=== PATIENT | female | born 1960 | race Caucasian/White ===

== ENCOUNTER 2020-09-18 07:15 | Observation (INO) | payer BC ==
[~2020-09-18] VITALS: Ht 165.1 cm; Wt 101.0 kg
[2020-09-18] MEDS ORDERED: ASPIRIN 81 MG CHEW TAB PO ONE (07:30)
[2020-09-18] MEDS ORDERED: KETOROLAC TROMETHAMINE 30 MG/ML VIAL IV STA (07:33)
[2020-09-18] MEDS ORDERED: PANTOPRAZOLE 40 MG 10ML VIAL IV STA (07:33)
[2020-09-18] MEDS ORDERED: SODIUM CHLORIDE 0.9% 1000ML 1,000 ML IV STA (07:33)
[2020-09-18] MEDS ORDERED: ONDANSETRON HCL INJ 2MG/ML 2ML 2 MG/ML VIAL IV STA (07:33)
[2020-09-18] MEDS ORDERED: MORPHINE SULFATE INJ 4 MG/ML INJ 1ML IV PRN ×2 (07:45→09:00)
[2020-09-18 07:47] LABS: BASOPHILS # (AUTO) 0.1 (0.0-0.1); BASOPHILS % 0.3 % (0.0-1.0); EOSINOPHILS % 0.1 % (0.0-6.0); HEMATOCRIT 44.8 % (34.2-44.1); HEMOGLOBIN 14.8 g/dL (12.0-16.0); LYMPHOCYTES # (AUTO) 1.3 (1.0-3.2); LYMPHOCYTES % 6.7 % (18.0-39.1); MEAN CORPUSCULAR HEMOGLOBIN 26.9 pg (28-32); MEAN CORPUSCULAR VOLUME 81.5 fL (81-99); MONOCYTES # (AUTO) 0.8 (0.2-0.8); MONOCYTES % 4.1 % (4.4-11.3); NEUTROPHILS # (AUTO) 16.7 (2.1-6.9); NEUTROPHILS % 88.2 % (38.7-80.0); PLATELET COUNT 285 x10e3/uL (140-360); RED CELL DISTRIBUTION WIDTH 13.1 % (11.7-14.4)
[2020-09-18 08:11] LABS: ALANINE AMINOTRANSFERASE 34 IU/L (0-55); ALBUMIN 3.9 g/dL (3.5-5.0); ALBUMIN/GLOBULIN RATIO 1.1 (0.8-2.0); ALKALINE PHOSPHATASE 91 IU/L (40-150); ANION GAP 16.7 mmol/L (8-16); BLOOD UREA NITROGEN 8 mg/dL (7-26); BUN/CREATININE RATIO 12 (6-25); CARBON DIOXIDE 22 mmol/L (22-29); CHLORIDE 102 mmol/L (98-107); CREATINE KINASE 38 IU/L (29-168); CREATININE, SERUM 0.65 mg/dL (0.57-1.11); EST GLOMERULAR FILTRATION RATE > 60 ML/MIN (60-); GLUCOSE 168 mg/dL (74-118); POTASSIUM 3.7 mmol/L (3.5-5.1); SODIUM 137 mmol/L (136-145)
[2020-09-18] MEDS ORDERED: CEFEPIME 1GM/NS 0.9% 50 ML 50 ML IV STA (08:20)
[2020-09-18] MEDS ORDERED: PANTOPRAZOLE 40 MG 10ML VIAL ONE (08:29)
[2020-09-18] MEDS ORDERED: KETOROLAC TROMETHAMINE 30 MG/ML VIAL ONE ×2 (08:29→13:00)
[2020-09-18] MEDS ORDERED: ONDANSETRON HCL INJ 2MG/ML 2ML 2 MG/ML VIAL ONE ×2 (08:29→13:00)
[2020-09-18] MEDS ORDERED: MORPHINE SULFATE INJ 4 MG/ML INJ 1ML ONE (08:29)
[2020-09-18] MEDS ORDERED: SODIUM CHLORIDE 0.9% 1000ML 1,000 ML ONE (08:29)
[2020-09-18] MEDS ORDERED: CEFEPIME HCL 1 GM VIAL ONE (08:30)
[2020-09-18 08:33] LABS: CLARITY,URINE CLOUDY (CLEAR); COLOR,URINE YELLOW (YELLOW); KETONES,URINE 1+ (NEGATIVE); LEUKOCYTE ESTERASE ,URINE NEGATIVE (NEGATIVE); NITRITE,URINE NEGATIVE (NEGATIVE); PROTEIN,URINE DIPSTICK 2+ (NEGATIVE); URINE UROBILINOGEN 0.2 mg/dL (0.2 - 1)
[2020-09-18] MEDS ORDERED: IOPAMIDOL 370 MG/ML 200 ML INFUS..BTL INJ ONE (08:36)
[2020-09-18] MEDS ORDERED: SODIUM CHLORIDE 0.9% 50ML 50 ML ONE (08:36)
[2020-09-18] MEDS ORDERED: CEFEPIME HCL 1GM 1 GM in SODIUM CHLORIDE 0.9% 50ML 50 ML IV SCH (09:00)
[2020-09-18] MEDS ORDERED: ONDANSETRON HCL INJ 2MG/ML 2ML 2 MG/ML VIAL IV PRN (09:00)
[2020-09-18] MEDS: SODIUM CHLORIDE 0.9% 1000ML 1,000 ML IV SCH ×3 (09:00→17:02)
[2020-09-18 09:19] LABS: BACTERIA,URINE MODERATE /HPF; EPITHELIAL CELLS,URINE FEW /LPF
[2020-09-18] MEDS ORDERED: METRONIDAZOLE 500MG/NS 100ML 100 ML IV ONE (10:00)
[2020-09-18] MEDS ORDERED: BUPIVACAINE 0.5%/EPI 30 ML SDV INJ ONE (12:02)
[2020-09-18] MEDS ORDERED: MIDAZOLAM HCL 2 MG/2 ML VIAL ONE (12:07)
[2020-09-18] MEDS ORDERED: FENTANYL CITRATE/PF 100MCG/2 ML INJ ONE (12:07)
[2020-09-18] MEDS ORDERED: GLYCOPYRROLATE INJ 0.2 MG/ML VIAL ONE (13:00)
[2020-09-18] MEDS ORDERED: ROCURONIUM BROMIDE 10 MG/ML 5ML VIAL IV ONE (13:00)
[2020-09-18] MEDS ORDERED: PROPOFOL IV EMULSION 10 MG/ML 20 ML VIAL ONE (13:00)
[2020-09-18] MEDS ORDERED: SEVOFLURANE INHAL SOLN 250 ML PEN BTL ONE (13:00)
[2020-09-18] MEDS ORDERED: DEXAMETHASONE SOD PHOS INJ 4 MG/ML VIAL ONE (13:00)
[2020-09-18] MEDS ORDERED: CEFAZOLIN SOD 1 GM VIAL ONE (13:00)
[2020-09-18] MEDS ORDERED: LIDOCAINE HCL 2% LOCAL INJ 5 ML SDV VIAL INJ ONE (13:00)
[2020-09-18] MEDS ORDERED: NEOSTIGMINE 1 MG/ML 10ML VIAL ONE (13:00)
[2020-09-18] MEDS ORDERED: ACETAMINOPHEN 1000 MG/100 ML 100 ML IV ONE (13:05)
[2020-09-18] MEDS ORDERED: ALBUTEROL/IPRATROPIUM 3 ML NEB ONE (13:45)
[2020-09-18] MEDS ORDERED: LORAZEPAM INJ 2 MG/ML VIAL ONE (13:58)
[2020-09-18 14:54] VITALS: BP 139/54
[2020-09-18] MEDS ORDERED: METHYLPREDNISOLONE SOD SUCC 125 MG/2ML VIAL IV ONE (15:00)
[2020-09-18] MEDS ORDERED: BREO ELLIPTA 11 EACH INH (16:41)
[2020-09-18] MEDS ORDERED: ASPIRIN 81 MG CHEW TAB ONE (16:42)
[2020-09-18] MEDS ORDERED: PROAIR HFA INH8.5 GM INH (16:43)
[2020-09-18] MEDS ORDERED: MONTELUKAST SOD10 MG PO (16:44)
[2020-09-18 17:00] VITALS: BP 139/54
[2020-09-18] MEDS ORDERED: ALBUTEROL SULFATE HFA 8GM INHALATION AEROSOL INH PRN (17:00)
[2020-09-18 20:00] VITALS: BP 139/54
[2020-09-18 20:37] VITALS: BP 131/59
[2020-09-19] VITALS (8 sets, daily range): BP systolic 131–152; BP diastolic 75–94
[2020-09-19 05:53] LABS: BASOPHILS % 0.1 % (0.0-1.0); HEMATOCRIT 38.8 % (34.2-44.1); HEMOGLOBIN 12.4 g/dL (12.0-16.0); LYMPHOCYTES % 6.3 % (18.0-39.1); MEAN CORPUSCULAR HEMOGLOBIN 27.4 pg (28-32); MEAN CORPUSCULAR VOLUME 85.7 fL (81-99); MONOCYTES # (AUTO) 0.6 (0.2-0.8); MONOCYTES % 3.8 % (4.4-11.3); NEUTROPHILS # (AUTO) 13.7 (2.1-6.9); NEUTROPHILS % 89.4 % (38.7-80.0); PLATELET COUNT 243 x10e3/uL (140-360); RED BLOOD COUNT 4.53 x10e6/uL (3.6-5.1); RED CELL DISTRIBUTION WIDTH 13.2 % (11.7-14.4)
[2020-09-19 06:14] LABS: ALANINE AMINOTRANSFERASE 22 IU/L (0-55); ALKALINE PHOSPHATASE 68 IU/L (40-150); ANION GAP 11.9 mmol/L (8-16); BLOOD UREA NITROGEN 6 mg/dL (7-26); BUN/CREATININE RATIO 10 (6-25); CALCIUM 8.1 mg/dL (8.4-10.2); CARBON DIOXIDE 24 mmol/L (22-29); CHLORIDE 109 mmol/L (98-107); EST GLOMERULAR FILTRATION RATE > 60 ML/MIN (60-); GLUCOSE 162 mg/dL (74-118); POTASSIUM 3.9 mmol/L (3.5-5.1); SODIUM 141 mmol/L (136-145)
[2020-09-19] MEDS: MONTELUKAST SODIUM 10 MG TAB PO SCH (07:51)
[2020-09-19] MEDS ORDERED: CEFEPIME HCL 1 GM VIAL ONE (07:57)
[2020-09-19] MEDS ORDERED: MEPERIDINE HCL/PF 25 MG/0.5 ML AMP IV PRN (08:45)
[2020-09-19] MEDS: FLUTICASONE INH SCH (09:00)
[2020-09-19] MEDS: VILANTEROL INH SCH (09:00)
[2020-09-19] MEDS: SODIUM CHLORIDE 0.9% 1000ML 1,000 ML IV SCH ×3 (09:00→17:00)
[2020-09-19] MEDS ORDERED: CEFEPIME HCL 1GM 1 GM in SODIUM CHLORIDE 0.9% 50ML 50 ML IV SCH (09:00)
[2020-09-19] MEDS ORDERED: MEPERIDINE HCL INJ 25 MG/ML VIAL ONE (09:08)
[2020-09-19] MEDS ORDERED: MEPERIDINE HCL INJ 25 MG/ML VIAL IV PRN (09:15)
[2020-09-19] MEDS ORDERED: SODIUM CHLORIDE 0.9% 50ML 50 ML ONE (09:27)
[2020-09-19] MEDS ORDERED: CEFTRIAXONE SOD 1 GM in SODIUM CHLORIDE 0.9% 50ML 50 ML IV SCH (18:30)
[2020-09-19] MEDS ORDERED: AZITHROMYCIN 500MG/NS 250 ML 250 ML IV SCH (18:45)
[2020-09-20] VITALS: BP 154/81
[2020-09-20 04:00] VITALS: BP 158/94
[2020-09-20] MEDS: SODIUM CHLORIDE 0.9% 1000ML 1,000 ML IV SCH ×2 (04:51→09:00)
[2020-09-20] MEDS ORDERED: ACETAMINOPHEN 325 MG TAB PO PRN (06:00)
[2020-09-20 08:00] VITALS: BP 148/90
[2020-09-20] MEDS: VILANTEROL INH SCH (09:00)
[2020-09-20] MEDS: FLUTICASONE INH SCH (09:00)
[2020-09-20 09:42] VITALS: BP 148/90
[2020-09-20] MEDS: MONTELUKAST SODIUM 10 MG TAB PO SCH (10:22)
[2020-09-20 11:59] VITALS: BP 146/80
[2020-09-20] MEDS ORDERED: AZITHROMYCIN250 MG PO (14:25)
[2020-09-20 15:53] VITALS: BP 113/78
== END 2020-09-20 16:41 | disposition home or self-care (01) ==
LOC: ER 07:21 → ERHOLD 08:59 → MED/SURG 14:36
PROVIDERS: ADMIT Internal Medicine; ATTEND Internal Medicine
DX: K35.80 Unspecified acute appendicitis (principal); J45.901 Unspecified asthma with (acute) exacerbation; Z20.822 Contact with and (suspected) exposure to COVID-19; Z90.710 Acquired absence of both cervix and uterus
CPT/HCPCS: 36415 ×2; 44970; 71045; 74018; 74177; 80053 ×2; 81001; 82550; 82553; 83690; 84484; 85025 ×2; 88304; 99284; C9113; G0378 ×3; J0131; J0456; J0690; J0692 ×2; J0696; J1100; J1885; J2001; J2060; J2175; J2270 ×2; J2405 ×2; J2704; J2710; J2930; J7030 ×3; Q9967; U0002; J2250; J3010